=== PATIENT | female | born 1980 | race African-American/Black ===

== ENCOUNTER 2020-03-30 21:18 | Emergency (ER) | payer OTHER ==
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
[2020-03-30 21:29] VITALS: BP 159/107; PULSE 71; TEMP 98.9; BMI 30.4
== END 2020-03-30 21:51 | disposition home or self-care (01) ==
LOC: FER 21:18
DX: S16.1XXA Strain of muscle, fascia and tendon at neck level, initial encounter (principal); S39.012A Strain of muscle, fascia and tendon of lower back, initial encounter
CPT/HCPCS: 99283-25

== ENCOUNTER 2024-05-29 23:41 | Emergency (ER) | payer OTHER ==
[2024-05-30 00:11] VITALS: RESP 18; BMI 25.4
[2024-05-30] MEDS ORDERED: ACETAMINOPHEN 325 MG TABLET (FP) ONE (01:57)
[2024-05-30] MEDS: ACETAMINOPHEN 325 MG TABLET (FP) PO ONE (02:00)
[2024-05-30 02:12] LABS: EOS % 2.2 % (0-4.5); HEMATOCRIT 39.3 % (32.4-45.2); LYMPH % 48.8 % (8-40); MCH 25.6 pg (25.7-33.7); MEAN CELL VOLUME 77.3 fl (80-96); MEAN PLT VOLUME 9.2 fl (7.5-11.1); MONO % 6.7 % (3.8-10.2); NEUT % 41.3 % (42.8-82.8); PLATELET COUNT 161 10^3/uL (134-434); RBC 5.08 M/mm3 (3.60-5.2); RDW 14.4 % (11.6-15.6); WHITE BLOOD COUNT 5.6 K/mm3 (4.0-10.0)
[2024-05-30 02:29] LABS: POTASSIUM 3.8 mmol/L (3.5-5.1)
[2024-05-30 02:31] LABS: BLOOD UREA NITROGEN 12.2 mg/dL (7-18); CALCIUM 9.1 mg/dL (8.5-10.1)
[2024-05-30 02:32] LABS: ALBUMIN 3.7 g/dl (3.4-5.0)
[2024-05-30 02:35] LABS: CREATININE 0.9 mg/dL (0.55-1.3)
[2024-05-30 02:36] LABS: BILIRUBIN,TOTAL 0.6 mg/dL (0.2-1); TOT PROT 6.8 g/dl (6.4-8.2)
[2024-05-30 03:34] VITALS: BP 131/89; PULSE 68; TEMP 98.3
== END 2024-05-30 04:18 | disposition home or self-care (01) ==
LOC: JER 23:41
DX: G44.209 Tension-type headache, unspecified, not intractable (principal); I10 Essential (primary) hypertension
CPT/HCPCS: 36415; 80053; 84703; 85025; 99283-25

== ENCOUNTER 2024-12-05 01:17 | Emergency (ER) | payer OTHER ==
[2024-12-05 01:35] VITALS: TEMP 97.5; BMI 31.2
[2024-12-05 01:51] VITALS: PULSE 69; RESP 14
[2024-12-05] MEDS ORDERED: LIDOCAINE 5% TOPICAL PATCH ONE (02:02)
[2024-12-05] MEDS ORDERED: ACETAMINOPHEN 325 MG TABLET (FP) ONE (02:02)
[2024-12-05] MEDS: ACETAMINOPHEN 500 MG TABLET (FP) PO ONE (02:15)
[2024-12-05] MEDS: LIDOCAINE 5% TOPICAL PATCH TP ONE (02:15)
[2024-12-05] MEDS: KETOROLAC TROMETHAMINE 30 MG/1 ML VIAL IM ONE (02:22)
[2024-12-05] MEDS ORDERED: KETOROLAC TROMETHAMINE 30 MG/1 ML VIAL ONE (02:27)
[2024-12-05 03:34] VITALS: BP 154/73
[2024-12-05] MEDS ORDERED: LIDOCAINE PATCH REMOVAL MC SCH (22:00)
== END 2024-12-05 03:54 | disposition home or self-care (01) ==
LOC: JER 01:17
PROC: 3E0233Z Introduction of Anti-inflammatory into Muscle, Percutaneous Approach (ICD-10-PCS; principal; 2024-12-05)
DX: S16.1XXA Strain of muscle, fascia and tendon at neck level, initial encounter (principal); V49.50XA Passenger injured in collision with unspecified motor vehicles in traffic accident, initial encounter; Y92.410 Unspecified street and highway as the place of occurrence of the external cause
CPT/HCPCS: 99284-25